=== PATIENT | female | born 1955 | race Caucasian/White ===

== ENCOUNTER 2025-03-24 00:33 | Emergency (ER) | payer OTHER, SELFPAY ==
[2025-03-24] VITALS (11 sets, daily range): BP systolic 105–139; BP diastolic 59–75; PULSE 82–96; RESP 15–20; TEMP 36.2; O2SAT 94–100; BMI 24.8
--- OUTSIDE RECORDS SUMMARY | 2025-03-24 00:35 | XMS_ITS | Encounter Summary ---
Author Organization [facility] Address [address] [place] [address] Care Team Providers Care Pharmacy Customer Care Specialist Name Role Phone Sumeet Reynolds MD Primary Care Provid er Sumeet Reynolds MD Unavailable + [phone] Isabel Baez PA-C Unavailable [phone] Jennifer Sam MD Unavailable Airam Cesar NP Unavailable [phone] Marshall Morrow MD Unavailable [phone] Airam Cesar NP Unavailable [phone] Encounter Details Date Type Department Care Team (Late st Contact Info) Description 07/27/2022 [facility] [address] [place] [address] Josephine Crane, RN Social History Tobacco Use Types Packs/Day Years Used Date Smoking Tobacco: Never Smokeless Tobacco: Never Alcohol Use Standard Drinks/Week Comments Never 0 (1 standard drink = 0.6 oz pur e alcohol) PHQ-2 Answer Date Recorded PHQ-2 Score 0 05/12/2022 Comments No Sex and Gender Information Value Date Recorded Sex Assigned at Female 04/26/2022 8:24 AM CDT Legal Sex Female 3:41 AM HOSPICE/HOME HEALTH AIDE Gender Identity Female 04/26/2022 8:24 AM CDT Sexual Orientation Straight 04/26/2022 8: 24 AM CDT COVID-19 Exposure Response Date Recorded In the last 10 days, have yo u been in contact with someone who was confirmed or suspected to have Coronavirus/COVID-19? No / Unsure 07/26/2022 9:39 AM CDT documented as of this encounter Plan of Treatment Not on file documented as of this encounter Visit Diagnoses Not on filedocumented in this encounter Additional Health Concerns Assessment Noted Time PHQ-9 Depression Total Score: 2 05/12/20 2:10 PM CDT documented as of this encounter Care Teams Pharmacy Customer Care Specialist Relationship Specialty Start Date End Date Sumeet Reynolds MD [address] [place] [address] [place] [address] PCP - General Internal Medicine - Pediatrics 04/29/22 Sumeet Reynolds MD [address] [place] [address] [place] [address] Assigned PCP 04/01/22 09/17/22 Isabel Baez, PA-C [address] [place] [id number] Physician Orchid Superintendent Dermatology 06/10/22 Jennifer Sam MD [address] [place] [address] Gastroenterology 07/08/22 Airma Cesar NP [address] [place] [address] [place] [address] Nurse Practitioner Family Medicine 07/16/22 Marshall Morrow MD [address] [place] [address]/[place] [address] Pulmonary Disease 07/16/22 Airam Cesar NP [address] [facility] [address] [place], [place] [address] Assigned PCP 09/18/22 documented as of this encounter
--- OUTSIDE RECORDS SUMMARY | 2025-03-24 00:35 | XMS_ITS | Encounter Summary ---
Author Organization [facility] Address [address] [place] [address] Care Team Providers Care Car Blocker Name Role Phone Bridget Glez MD Primary Care Provider Encounter Details Date Type Department Care Team (Late st Contact Info) Description 04/27/2018 Emergency Room External to [facility] RIGHT SIDED ABD PAIN Social History Tobacco Use Types Packs/Day Years Used Date Smoking Tobacco: Never Smokeless Tobacco: Never Alcohol Use Standard Drinks/Week Comments No 0 (1 standard drink = 0.6 oz pur e alcohol) Comments No Sex and Gender Information Value Date Recorded Sex Assigned at Not on file Legal Sex Female 4:14 AM CDT Gender Identity Not on file Sexual Orientation Not on file documented as of this encounter Plan of Treatment Not on file documented as of this encounter Visit Diagnoses Not on filedocumented in this encounter Care Teams Car Blocker Relationship Specialty [place] [address] [place] [address] PCP - General Family Practice 02/07/18 documented as of this encounter
--- OUTSIDE RECORDS SUMMARY | 2025-03-24 00:35 | XMS_ITS | Encounter Summary ---
Author Organization [facility] Address [address] [place] [address] Care Team Providers Care Therapist Speech Name Role Phone Bridget Glez MD Primary Care Provider [phone] Encounter Details Date Type Department Care Team (Late st Contact Info) Description 12/01/2018 Consent for Procedure/Treatme nt [facility] Department INFORMED CONSENT RECORD Social History Tobacco Use Types Packs/Day Years [...] on filedocumented in this encounter Care Teams Therapist Speech Relationship Specialty [place] [address] [place] [address] PCP - General Family Practice 02/07/18 documented as of this encounter
--- OUTSIDE RECORDS SUMMARY | 2025-03-24 00:35 | XMS_ITS | Clinical Summary ---
Author Organization [facility] Address [address] [place] [address] Care Team Providers Care Broomcorn Sorter Name Role Phone Bridget Glez MD Primary Care Provider [phone] Source Comments You are receiving this document as you are listed as the primary care provider,follow-up provider, or the patient has been referred to you for consultation.This is in compliance with the Medicare and[facility] EHR Incentive Program,which states Providers who transition their patient to another setting of careor provider of care or refers their patient to another provider of care shouldprovide summary care record for each transition of care or referral. [facility] Allergies Active Allergy Reactions Criticality Noted Date Comments Baclofen Anaphylaxis,Anxiety, Di zziness,Edema,generali zed,Myalgias,Palpitati ons,Rash,Swelling High 05/11/2021 Benzodiazepines Other, see comments Low 01/23/2018 Withdrawals for months. Worsening anxiety. Withdrawals for months. Worsening anxiety. Codeine Cranberry Anaphylaxis,Anxiety, Ot her, see comments,Dizziness,Hiv es,Itching,Palpitation s,Rash,Respiratory Distress,Swelling High 04/28/2012 Gabapentin Confusion,Dizziness, He adache,Muscle Aches/Weakness 03/14/2023 Hydroxyzine Tachycardia 04/21/2018 Latex Rash Low 02/27/2021 Morphine And Codeine Vomiting 09/02/2009 Other Rash 06/20/2020 Most berries. Medications Multiple Vitamin (MULTI-VITAMIN DAILY OR) 2 Active cholecalciferol (VITAMIN D3) 25 MCG (1000 UT) tablet Take 1,000 Units by mouth. Active lansoprazole (PREVACID) 30 MG capsule Take 1 Capsule (30 mg) by mouth daily. 90 Capsule 3 3 Active Additional Information Patient not taking.Reported on 03/14/2023 erythromycin (ERYGEL) 2 % gelIndications:A cne, unspecified acne type Apply topically daily as needed. 30 g 3 Active Additional Information Patient not taking.Reported on 03/14/2023 ibuprofen (MOTRIN) 200 MG tablet Take 1 Tablet (200 mg) by mouth three times a day. Active Active Problems Problem Noted Date Diagnosed Date Food allergy 06/20/2020 Overview (06/20/2020): berries Abdominal pain, left upper quadrant 11/07/2018 Nausea 11/07/2018 Anxiety 02/09/2018 Glaucoma suspect of both eyes 01/28/2016 Cortical age-related cataract of both eyes 01/27 Meibomian gland dysfunction (MGD), bilateral, both upper and lower lids 01/28/2016 Presbyopia 01/28/2016 Palpitations 09/28/2010 Overview (01/31/2018): Sinus tachycardia with PVCs Became persistent 01/23/2018. Controlled with propranolol Hyperlipidemia 09/28/2010 Gastroesophageal reflux disease 09/28/2010 Overview (06/01/2017): Reflux Pulmonary nodule 08/27/2010 Mitral valve disorder 08/27/2010 Overview (07/10/2015): Epic Acne 09/02/2009 Depression 09/02/2009 Nasal polyps 09/02/2009 Esophageal reflux 03/16/2003 Overview (06/01/2017): Gastroesophageal Reflux Disease Sjogren syndrome, unspecified Disorder of adrenal gland, unspecified Resolved Problems Problem Noted Date Diagnosed Date Resolved Date Irritable bowel syndrome 03/16/2003 Immunizations Immunization Administration Dates Next Due DT Ped 05/08/1991 Flu Vac (3+ yrs) 08/08/2012,08/10/2011 Influenza IIV4 (Quadrivalent) 0.5mL (47821) 07/12,08/08/2017,07/15/2016 Influenza Vaccine (3+years) ([facility]) 010 Influenza, Unspecified Formulation 08/06/1993 Moderna Monovalent 12+ 01/02/2021,12/05/2020 PCV13 (Prevnar) 07/15/2016 Tdap 07/11/2013 Zoster (Zostavax) 02/13/2014 Family History Medical History Relation Name Comments Cancer, Colon Father Cancer, Melanoma Father Depression Father Hearing Loss Father Heart disorder Father Hyperlipidemia Father cancer,colon Father Anesthesia Reaction Mother Cerebrovascular Disease Mother of cerebral aneurysm Depression Mother Thyroid Disorder Mother and 2 siste rs Asthma Maternal Grandmother Cancer, Other Maternal Grandmother cervic al CA Cancer, Other Paternal Grandfather Hearing Loss Paternal Grandfather Hyperlipidemia Paternal Grandfather Cancer, Other Paternal Grandmother Depression Sister 1 2 sisters Other Sister 2 AAA Asthma Sister 3 Cancer, Breast Sister 4 reoccured. dx @73. Heart disorder Sister 4 Lymphoma Sister 4 Cancer, Ovary Negative Family History Cataract Negative Family History Glaucoma Negative Family History Macular Degeneration Negative Family History Relation Name Status Comments Father Mother ANEURYSM/ CEREB RAL Maternal Grandmother Paternal Grandfather Paternal Grandmother Sister 1 Sister 2 Sister 3 Sister 4 Social History Tobacco Use Types Packs/Day Years Used Date Smoking Tobacco: Never Smokeless Tobacco: Never Alcohol Use Standard Drinks/Week Comments No 0 (1 standard drink = 0.6 oz pur e alcohol) PHQ-2 Answer Date Recorded PHQ-2 Score 0 02/20/2024 Comments No Sex and Gender Information Value Date Recorded Sex Assigned at Not on file Legal Sex Female 4:14 AM CDT Gender Identity Not on file Sexual Orientation Not on file Last Filed Vital Signs Vital Sign Reading Time Taken Comments Blood Pressure 111/61 04/25/2024 2:45 PM CDT Pulse 75 04/25/2024 2:45 PM CDT Temperature 36.4 C (97.6 F) 08/18/2022 9:39 AM DROP BOARD MAN Respiratory Rate 18 11/17/2022 3:15 PM DROP BOARD MAN Oxygen Saturation 98% 11/17/2022 3:15 PM DROP BOARD MAN Inhaled Oxygen Concentration - - Weight 63.5 kg (140 lb) 04/25/2024 2:45 PM CDT Height 160 cm (5' 3) 08/18/2022 9:39 AM DROP BOARD MAN Body Mass Index 24.8 08/18/2022 9:39 AM DROP BOARD MAN Plan of Treatment Health Maintenance Due Date Last Done Comments Adult Preventive Visit 08/08/2013 08/08/2012, 2009 Zoster/Shingles Vaccine (2 of 3) 04/10/2014 02/13/2014 Pneumococcal Vaccine 50+ Yrs (2 of 2 - PCV) 07/15/2017 07/15/2016 DTaP/Tdap/Td Vaccine (3 - Tdap) 07/11/2023 07/11/2013, 05/08/1991 Colonoscopy 12/01/2023 12/01/2018, 12/2013, 11/12/2013 Mammogram 03/10/2024 03/10/2023, 12/09, 11/08/2017, Additional history exists COVID-19 Vaccine ( season) 2024 09/16/2021, 01/02/2021, 12/05/2020 Influenza Vaccine (Season Ended) 2025 07/17/2020, 07/16/2020, 07/30/2019, Additional history exists Cholesterol 02/05/2026 02/05/2021, 07/10, 07/08/2017, Additional history exists RSV Vaccine (1 - 1-dose 75+ series) 12/31/2030 Hep C Screening (Preventive Services) Completed 11/28/2015 Dexa Completed 04/22/2021, 04/22/2021 HepA Vaccine Aged Out No longer eligi ble based on patient's age to complete this topic HepB Vaccine Aged Out No longer eligi ble based on patient's age to complete this topic Hib Vaccine Aged Out No longer eligi ble based on patient's age to complete this topic IPV (Polio) Vaccine Aged Out No longe r eligible based on patient's age to complete this topic MCV4 Vaccine Aged Out No longer eligi ble based on patient's age to complete this topic Meningococcal B Vaccine Aged Out No l onger eligible based on patient's age to complete this topic Procedures Procedure Name Priority Date/Time Associated Diagnosis Comments MM MAMMOGRAM SCREENING BILAT W 3D BUD W CAD Routine 03/10/2023 8:37 AM CDT LIPID PANEL & DIRECT LDL (IF NEEDED) Routine 02/05/2021 7:08 AM CDT Screening cholesterol level COLONOSCOPY Routine 12/01/2018 11:52 AM DROP BOARD MAN Screen for colon cancer HEPATITIS C ANTIBODY, WITH REFLEX (ANTI-HCV) Routine 11/28/2015 10:57 AM DROP BOARD MAN Inflammatory arthritis from Last 3 Months or Most Recently Relevant to Health Maintenance Results * MM Mammogram Screening Bilat W 3D Bud W CAD (03/10/2023 8:37 AM CDT) Anatomical Region Laterality Modality Breast Bilateral Mammography Impressions 03/11/2023 7:50 AM CDT : ACR BI-RADS Category 2: Benign RECOMMENDATION: Follow Up Imaging in 12 months - Bilateral The results and recommendations of this examination will be communicated to the patient. Narrative 03/11/2023 7:50 AM CDT MM MAMMOGRAM SCREENING BILAT W 3D BUD W CAD performed on 03/10/23 Compared to: 01/02/2019 MM Mammogram Screening Bilat W 3D Bud W CAD, 11/08/2017 MM Mammogram Screening Bilat W Bud W CAD, and 12/27/2016 MEDICAL IMAGING OUTSIDE FILM FINDINGS: Bilateral screening mammogram was performed with the assistance of Computer-Aided Detection and breast tomosynthesis. The breasts are extremely dense, which lowers the sensitivity of mammography. There are post-surgical changes on the right. There is no radiographic evidence of malignancy. us Bridget Glez MD RAD NOMAN Final Result * (ABNORMAL) Lipid Panel and Direct LDL(If Needed) (02/05/2021 7:08 AM CDT) Cholesterol 235(H) 0 - 199 mg/dL 02/05/2021 11:46 AM CDT [facility] Triglyceride 80 <=149 mg/dL 02/05/2021 11:46 AM CDT [facility] HDL Cholesterol 77 >=40 mg/dL 02/05/2021 11:46 AM CDT [facility] LDL, Calculated 142(H) <130 mg/dL 02/05/2021 11:46 AM CDT [facility] Non HDL Chol, Calculated 158 mg/dL 02/05/2021 11:46 AM CDT [facility] Cholesterol/HDL Ratio 3.1 02/05/2021 11:46 AM CDT [facility] Hours Fasting 12 02/05/2021 11:46 AM CDT [facility] Blood Venipuncture / Unknown 02/05/2021 7:08 AM CDT 02/05/2021 7:57 AM CDT us Bridget Glez MD LAB_1 Final Result [facility] [address] [address], [facility] [phone] [facility] [address] [place] [address], [facility] [phone] * COLONOSCOPY [[id number]] (12/01/2018 11:52 AM DROP BOARD MAN) 12/01/2018 11:5 2 AM DROP BOARD MAN Narrative [facility] - 12/01/2018 12:23 PM DROP BOARD MAN Instrument Name: 181 Indications: Family history of colon cancer in a first-degree relative Providers: Francisco Fatima MD, Kierra James LPN, Peg Rivera, RN Referring MD: Medicines: Midazolam 3 mg IV, Fentanyl 100 micrograms IV Complications: No immediate complications. Procedure: Pre-Anesthesia Assessment: - The risks and benefits of the procedure and the sedation options and risks were discussed with the patient. All questions were answered and informed consent was obtained. - Airway Examination: normal oropharyngeal airway and neck mobility. - ASA Grade Assessment: II - A patient with mild systemic disease. After I obtained informed consent, the scope was passed under direct vision. Prior to sedation, patient identity and procedure was reverified. Throughout the procedure, the patient's blood pressure, pulse, and oxygen saturations were monitored continuously. The PCF-H190L was introduced through the anus and advanced to the cecum, identified by appendiceal orifice and ileocecal valve. The colonoscopy was performed with moderate difficulty due to restricted mobility of the colon. Successful completion of the procedure was aided by increasing the dose of sedation medication. The quality of the bowel preparation was good. The ileocecal valve and the appendiceal orifice were photographed. Findings: Non-bleeding internal hemorrhoids were found during retroflexion. The hemorrhoids were medium-sized. The exam was otherwise without abnormality. Moderate Sedation: Moderate (conscious) sedation was administered by the endoscopy nurse and supervised by the endoscopist. The following parameters were monitored: oxygen saturation, heart rate, blood pressure, respiratory rate, EKG, adequacy of pulmonary ventilation, and response to care. Total physician intraservice time was 15 minutes. Impression: - Non-bleeding internal hemorrhoids. - The examination was otherwise normal. - No specimens collected. Recommendation: - Repeat colonoscopy in 5 years for screening purposes. Procedure Code(s): --- Professional --- 35348, Colonoscopy, flexible; diagnostic, including collection of specimen(s) by brushing or washing, when performed (separate procedure) G0500, Moderate sedation services provided by the same physician or other qualified health medication care manager performing a gastrointestinal endoscopic service that sedation supports, requiring the presence of an independent trained observer to assist in the monitoring of the patient's level of consciousness and physiological status; initial 15 minutes of intra-service time; patient age 5 years or older (additional time may be reported with [address], as appropriate) Diagnosis Code(s): --- Professional --- K64.8, Other hemorrhoids Z80.0, Family history of malignant neoplasm of digestive organs CPT copyright 2017 [employer]. All rights reserved. The codes documented in this report are preliminary and upon corporate staff accountant review may be revised to meet current compliance requirements. Attending Participation: Francisco Fatima MD 12/01/2018 12:23:08 PM This report has been signed electronically. Number of Addenda: 0 Note Initiated On: 12/01/2018 11:52 AM Procedure Note Francisco Fatima MD - 12/01/2018 Instrument Name: 181 Indications: Family history of colon cancer in a first-degree relative Providers: Francisco Fatima MD, Kierra James LPN, Peg Rivera RN Referring MD: Medicines: Midazolam 3 mg IV, Fentanyl 100 micrograms IV Complications: No immediate complications. Procedure: Pre-Anesthesia Assessment: - The risks and benefits of the procedure and the sedation options and risks were discussed with the patient. All questions were answered and informed consent was obtained. - Airway Examination: normal oropharyngeal airway and neck mobility. - ASA Grade Assessment: II - A patient with mild systemic disease. After I obtained informed consent, the scope was passed under direct vision. Prior to sedation, patient identity and procedure was reverified. Throughout the procedure, the patient's blood pressure, pulse, and oxygen saturations were monitored continuously. The PCF-H190L was introduced through the anus and advanced to the cecum, identified by appendiceal orifice and ileocecal valve. The colonoscopy was performed with moderate difficulty due to restricted mobility of the colon. Successful completion of the procedure was aided by increasing the dose of sedation medication. The quality of the bowel preparation was good. The ileocecal valve and the appendiceal orifice were photographed. Findings: Non-bleeding internal hemorrhoids were found during retroflexion. The hemorrhoids were medium-sized. The exam was otherwise without abnormality. Moderate Sedation: Moderate (conscious) sedation was administered by the endoscopy nurse and supervised by the endoscopist. The following parameters were monitored: oxygen saturation, heart rate, blood pressure, respiratory rate, EKG, adequacy of pulmonary ventilation, and response to care. Total physician intraservice time was 15 minutes. Impression: - Non-bleeding internal hemorrhoids. - The examination was otherwise normal. - No specimens collected. Recommendation: - Repeat colonoscopy in 5 years for screening purposes. Procedure Code(s): --- Professional --- 07283, Colonoscopy, flexible; diagnostic, including collection of specimen(s) by brushing or washing, when performed (separate procedure) G0500, Moderate sedation services provided by the same physician or other qualified health medication care manager performing a gastrointestinal endoscopic service that sedation supports, requiring the presence of an independent trained observer to assist in the monitoring of the patient's level of consciousness and physiological status; initial 15 minutes of intra-service time; patient age 5 years or older (additional time may be reported with [address], as appropriate) Diagnosis Code(s): --- Professional --- K64.8, Other hemorrhoids Z80.0, Family history of malignant neoplasm of digestive organs CPT copyright 2017 [employer]. All rights reserved. The codes documented in this report are preliminary and upon corporate staff accountant review may be revised to meet current compliance requirements. Attending Participation: Francisco Fatima MD 12/01/2018 12:23:08 PM This report has been signed electronically. Number of Addenda: 0 Note Initiated On: 12/01/2018 11:52 AM us Francisco Fatima MD DIGESTIVE CARE Final Result [facility] [place], [place] * HEPATITIS C ANTIBODY, WITH REFLEX (11/28/2015 10:57 AM DROP BOARD MAN) Anti-HCV Negative (Non Reactive) [facility] Comment:Does Not Rule Out In fection with HCV 11/28/2015 10:5 7 AM DROP BOARD MAN 11/28/2015 11:05 AM DROP BOARD MAN Narrative [facility] - 11/29/2015 10:45 AM DROP BOARD MAN Performed at [facility], [address] [place] [address] us Conchis Barbosa MD LAB_1 Final Re sult Performing Organization Address City/[facility]/ZIP Co de Phone Number [facility] [phone] from Last 3 Months or Most Recently Relevant to Health Maintenance Insurance SELF INSURED MEDICARE PART A [place] SELF INSURED [employer] SELF INSURED DENTAL Care Teams Broomcorn Sorter Relationship Specialty [place] [address] [place] [address] PCP - General Family Practice 02/07/18
--- OUTSIDE RECORDS SUMMARY | 2025-03-24 00:36 | XMS_ITS | Encounter Summary ---
Author Organization [facility] Address [address] [place] [address] Care Team Providers Care Repair Coil Winder Name Role Phone Sumeet Reynolds MD Primary Care Provid er Sumeet Reynolds MD Unavailable + [phone] Isabel Baez PA-C Unavailable [phone] Jennifer Sam MD Unavailable Airam Cesar NP Unavailable [phone] Marshall Morrow MD Unavailable [phone] Airam Cesar NP Unavailable [phone] Encounter Details Date Type Department Care Team (Late st Contact Info) Description 06/24/2022 MyC Medical Advice [facility] [address] [place] [address] Sumeet Reynolds MD [address] [place] [address] [place] [address] Low ferritin (Primary Dx) Social History Tobacco Use Types Packs/Day Years Used Date Smoking Tobacco: Never Smokeless Tobacco: Never Alcohol Use Standard Drinks/Week Comments Never 0 (1 standard drink = 0.6 oz pur e alcohol) PHQ-2 Answer Date Recorded PHQ-2 Score 0 05/12/2022 Comments No Sex and Gender Information Value Date Recorded Sex Assigned at Female 04/26/2022 8:24 AM CDT Legal Sex Female 3:41 AM ASSOCIATE DEAN Gender Identity Female 04/26/2022 8:24 AM CDT Sexual Orientation Straight 04/26/2022 8: 24 AM CDT COVID-19 Exposure Response Date Recorded In the last 10 days, have santy u been in contact with someone who was confirmed or suspected to have Coronavirus/COVID-19? No / Unsure 06/21/2022 2:29 PM CDT documented as of this encounter Miscellaneous Notes * Telephone Encounter - Sumeet Reynolds MD - 06/25/2022 10:21 AM CDT Since she's weaning off the sertraline I'd recommend doing the labs at least 4-6 weeks after stopping - however it can take a long time for iron stores to rebuil Teto Reynolds MD Internal Medicine-Pediatrics d. * Telephone Encounter - Josephine Crane RN - 06/24/2022 3:32 PM CDT Patient planning to wean off sertraline to see if her low iron rebounds. Routing to PCP to update and advise on next lab date, 3mo? documented in this encounter Plan of Treatment Not on file documented as of this encounter Visit Diagnoses Diagnosis Low ferritin- Primary Other nonspecific findings on examination of blood documented in this encounter Additional Health Concerns Assessment Noted Time PHQ-9 Depression Total Score: 2 05/12/20 22 2:10 PM CDT documented as of this encounter Care Teams Repair Coil Winder Relationship Specialty Start Date End Date Sumeet Reynolds MD [address] [place] [address] [place] [address] PCP - General Internal Medicine - Pediatrics 04/29/22 Sumeet Reynolds MD [address] [place] [address] [place] [address] Assigned PCP 04/01/22 09/17/22 Isabel Baez, PAJustaC [address] [place] [address] Physician Steamtable Worker Dermatology 06/10/22 Jennifer Sam MD [address] [place] [address] Gastroenterology 07/08/22 Airam Cesar NP [address] [place] [address] [place] [address] Nurse Practitioner Family Medicine 07/16/22 Marshall Morrow MD [address] [place] [address]/[place] [address] Pulmonary Disease 07/16/22 Airam Cesar NP [address] [place] [address] [place] [address] Assigned PCP 09/18/22 documented as of this encounter
--- OUTSIDE RECORDS SUMMARY | 2025-03-24 00:36 | XMS_ITS | Encounter Summary ---
Author Organization [facility] Address [address], [place] [address] Care Team Providers Care Prepared Foods Team Leader Name Role Phone Bridget Glez MD Primary Care Provider [phone] Encounter Details Date Type Department Care Team (Late st Contact Info) Description 05/27/2015 Scanned History External to External, Provider No address [address] CL-VISIT NOTES Social History Tobacco Use Types Packs/Day Years [...] on filedocumented in this encounter Care Teams Prepared Foods Team Leader Relationship Specialty [place] [address] [place] [address] PCP - General Family Practice 02/07/18 documented as of this encounter
--- OUTSIDE RECORDS SUMMARY | 2025-03-24 00:36 | XMS_ITS | Clinical Summary ---
Author Organization [facility] Address [address] [place] [address] Care Team Providers Care Clinical Dental Technician Name Role Phone Sumeet Reynolds MD Primary Care Provid er Isabel Baez PA-C Unavailable [phone] Jennifer Sam MD Unavailable Airam Cesar NP Unavailable [phone] Marshall Morrow MD Unavailable [phone] Airam Cesar NP Unavailable Allergies Active Allergy Reactions Criticality Noted Date Comments Baclofen Anxiety,Dizziness,An aphyl axis,Muscle Pain (Myalgia),Palpitations,Ra sh,Swelling High 05/11/2021 Benzodiazepines Other (See Comments) Low 01/23/2018 Withdrawals for months. Worsening anxiety. Cranberry Anaphylaxis,Anxiety, Diffi culty breathing,Dizziness,Hives ,Itching,Palpitations,Wojciech h,Shortness Of Breath,Swelling High 04/28/2012 Hydroxyzine Palpitations Low 04/21/2018 Morphine 09/02/2009 Other reaction(s): Vomiting Medications Multiple Vitamin (MULTIVITAMIN ADULT PO) Active ibuprofen (ADVIL/MOTRIN) 200 MG tablet Take 200 mg by mouth 4 times daily Activ e vitamin C (VITAMIN C) 250 MG tablet Take 250 mg by mouth daily Active cholecalciferol 25 MCG (1000 UT) TABS Take 1,000 Units by mouth daily Active EPINEPHrine (EPIPEN JR) 0.15 MG/0.3ML injection 2-pack INJECT 0.3 ML (0.15 MG TOTAL) INTRAMUSCULARLY NEEDED FOR ANAPHYLAXIS. INJECT INTO THE THIGH. 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 Alternatively, may consider other statins such as pravastatin, atorvastatin or rosuvastatin. 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 This is a TI-RADS 3 nodule. Follow-up recommended in one year. Mild mitral regurgitation 04/29/2022 Mild aortic regurgitation 04/29/2022 Cervical disc disorder 05/16/2021 Osteopenia 04/22/2021 Overview (04/29/2022): Osteopenia 04/22/21. Initial DXA BMD Recheck at -1.6 to -2.0 5 years Thoracic disc disorder 04/10/2021 Hyperlipidemia 09/28/2010 Overview (04/29/2022): If cholesterol lowering medication such as simvastatin is considered in the future, would recommend no more than 20 mg maximum per day due to risk of myopathy. Alternatively, may consider other statins such as pravastatin, atorvastatin or rosuvastatin. 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/29/2022 04/29/2022 Immunizations Immunization Administration Dates Next Due DT (PEDS <7y) 05/08/1991 Influenza Vaccine 18-64 (Flublok) 07/17/2020 Pneumo Conj 13-V (2010&after) 07/15/2016, 016 TDAP (Adacel,Boostrix) 07/11/2013 Zoster vaccine, live 02/13/2014 Social History Tobacco Use Types Packs/Day Years Used Date Smoking Tobacco: Never Smokeless Tobacco: Never Tobacco Cessation:Counseling Given: Not Answered Alcohol Use Standard Drinks/Week Comments Never 0 (1 standard drink = 0.6 oz pur e alcohol) PHQ-2 Answer Date Recorded PHQ-2 Score 0 05/12/2022 Adolescent Education Answer Date Record ed Getting School Help Needed Not on file 07/01 Comments No Sex and Gender Information Value Date Recorded Sex Assigned at Female 04/26/2022 8:24 AM CDT Legal Sex Female 3:41 AM 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 Gender Identity Female 04/26/2022 8:24 AM CDT Sexual Orientation Straight 04/26/2022 8: 24 AM CDT Last Filed Vital Signs Vital Sign Reading Time Taken Comments Blood Pressure 102/67 07/26/2022 9:52 AM CDT Pulse 82 07/26/2022 9:52 AM CDT Temperature 36.9 C (98.5 F) 07/26/2022 9:52 AM CDT Respiratory Rate 18 07/26/2022 9:52 AM CDT Oxygen Saturation 99% 07/26/2022 9:52 AM CDT Inhaled Oxygen Concentration - - Weight 58 kg (127 lb 14.4 oz) 07/26/2022 9:52 AM CDT Height 160 cm (5' 3) 07/26/2022 9:52 AM CDT Body Mass Index 22.66 07/26/2022 9:52 AM CDT Plan of Treatment Health Maintenance Due Date Last Done Comments ADVANCE CARE PLANNING 1956 CT COLONOGRAPHY 1955 FIT 1955 FLEX SIG 1955 sDNA (Cologuard) 1955 ZOSTER VACCINE (2 of 3) 04/10/2014 02/13/2014 RSV VACCINE (1 - Risk 60-74 years 1-dose series) 2016 PNEUMOCOCCAL VACCINE 50+ YEARS (2 of 2 - PPSV23) 07/15/2017 07/15/2016, 07/15/2016 MEDICARE ANNUAL WELLNESS VISIT 12/31/2020 08/27/2010 MAMMO SCREENING 01/02/2021 01/02/2019 LIPID 01/12/2023 01/12/2022 ANNUAL REVIEW OF HM ORDERS 05/12/2023 05/12/2022 DTAP/TDAP/TD VACCINE (2 - Td or Tdap) 07/11/2023 07/11/2013 FALL RISK ASSESSMENT 07/26/2023 07/26/2022, 07/15/20 COVID-19 VACCINE ( season) 2024 09/16/2021, 01/02/2021, 12/05/2020 PHQ-2 (once per calendar year) 2024 05/12/2022, 05/12/2022, 05/12/2022, Additional history exists DIABETES SCREENING 05/12/2025 05/12/2022, 11/05/2021 INFLUENZA VACCINE (Season Ended) 2025 07/17/2020, 07/30/2019, 08/09/2018, Additional history exists COLONOSCOPY 12/01/2028 12/01/2018 COLORECTAL CANCER SCREENING 12/01/2028 DEXA 04/22/2036 04/22/2021, 04/22/2021 HEPATITIS C SCREENING Completed 05/12/2022 HPV VACCINE Aged Out No longer eligi ble based on patient's age to complete this topic MENINGITIS VACCINE Aged Out No longer eligible based on patient's age to complete this topic Procedures Procedure Name Priority Date/Time Associated Diagnosis Comments COMPREHENSIVE METABOLIC PANEL Routine 05/12/2022 2:44 PM CDT Hypotension, unspecified hypotension type HEPATITIS C SCREEN REFLEX TO HCV RNA QUANT AND GENOTYPE Routine 05/12/2022 2:44 PM CDT Need for hepatitis C screening test LIPID PANEL (EXTERNAL RESULT) Routine 01/12/2022 7:32 AM CDT DEXA - HIM SCAN Routine 04/22/2021 MAMMOGRAM - HIM SCAN Routine 01/02/2019 COLONOSCOPY - HIM SCAN Routine 12/01/2018 from Last 3 Months or Most Recently Relevant to Health Maintenance Results * Hepatitis C Screen Reflex to HCV RNA Quant and Genotype (05/12/2022 2:44 PM CDT) Hepatitis C Antibody Nonreactive Nonreactive 05/13/2022 12:34 PM CDT SPECIALTY CORE/PROT/EN DO Blood VENOUS BLOOD / Unknown Venipuncture / Unknown 05/12/2022 2:44 PM CDT 05/12/2022 3:23 PM CDT Narrative SPECIALTY CORE/PROT/ENDO - 05/13/2022 12:34 PM CDT Assay performance characteristics have not been established for newborns, infants, and children. us Airam Cesar NP LAB - BLOOD ORDERABLES Final Re sult [facility] SPECIALTY CORE/PROT/ENDO Specialty Core/Prot/Endo [address] [facility], [address], [place] [address], [facility] [phone] * Comprehensive metabolic panel (BMP + Alb, Alk Phos, ALT, AST, Total. Bili, TP) (05/12/2022 2:44 PM CDT) Sodium 138 133 - 144 mmol/L 05/12/2022 7:26 PM CDT [facility] Potassium 3.8 3.4 - 5.3 mmol/L 05/12/2022 7:26 PM CDT [facility] Chloride 104 94 - 109 mmol/L 05/12/2022 7:26 PM CDT [facility] Carbon Dioxide (CO2) 28 20 - 32 mmol/L 05/12/2022 7:26 PM CDT [facility] Anion Gap 6 3 - 14 mmol/L 05/12/2022 7:26 PM CDT [facility] Urea Nitrogen 20 7 - 30 mg/dL 05/12/2022 7:26 PM CDT [facility] Creatinine 0.70 0.52 - 1.04 mg/dL 05/12/2022 7:26 PM CDT [facility] Calcium 9.3 8.5 - 10.1 mg/dL 05/12/2022 7:26 PM CDT [facility] Glucose 96 70 - 99 mg/dL 05/12/2022 7:26 PM CDT [facility] Alkaline Phosphatase 76 40 - 150 U/L 05/12/2022 7:26 PM CDT [facility] AST 29 0 - 45 U/L 05/12/2022 7:26 PM CDT [facility] ALT 43 0 - 50 U/L 05/12/2022 7:26 PM CDT [facility] Protein Total 7.5 6.8 - 8.8 g/dL 05/12/2022 7:26 PM CDT [facility] Albumin 3.8 3.4 - 5.0 g/dL 05/12/2022 7:26 PM CDT [facility] Bilirubin Total 0.2 0.2 - 1.3 mg/dL 05/12/2022 7:26 PM CDT [facility] GFR Estimate >90 >60 mL/min/1.7 3m2 05/12/2022 7:26 PM CDT [facility] Comment:Effective September 102020 eGFRcr in adults is calculated using the 2020 CKD-EPI creatinine equation which includes age and gender (Kameron et al., NEJM, DOI: 10.1056/EFAIxa5045863) Blood VENOUS BLOOD / Unknown Venipuncture / Unknown 05/12/2022 2:44 PM CDT 05/12/2022 3:23 PM CDT Airam Cesar NP LAB - BLOOD ORDERABLES Final Re sult [facility] [address] Lab (no room number, 1st floor of clinic) [place] [address], [facility] [phone] * (ABNORMAL) Lipid Panel (External Result) (01/12/2022 7:32 AM CDT) Cholesterol (External) 229(H) <200 mg/dL [facility] Triglycerides (External) 74 <150 mg/dL [facility] HDL Cholesterol (External) 84 >=50 mg/dL [facility] LDL Cholesterol (External) 130(H) <100 mg/dL [facility] Non HDL Cholesterol (External) 145(H) <130 mg/dL [facility] Blood 01/12/2022 7:32 AM CDT Narrative [facility] - 01/12/2022 7:32 AM CDT Care Everywhere, [facility] us Provider Outside LAB - HIM EXTERNAL RESULT Final Result Performing Organization Address City/State/[facility] Co de Phone Number [facility] [address] [facility] [address] [place] [address] * DEXA - HIM Scan (04/22/2021) Anatomical Region Laterality Modality Other Narrative 04/22/2021 Care Everywhere, [facility] us Provider Outside IMG DEXA ORDERABLES Final Resul t * Mammogram - HIM Scan (01/02/2019) Anatomical Region Laterality Modality Other Narrative 01/02/2019 Care Everywhere, [facility] us Provider Outside IMG MAMMOGRAPHY ORDERABLES Carly l Result * Colonoscopy - HIM Scan (12/01/2018) Narrative Yuliana Szymanski - 12/01/2018 Care Everywhere, [facility] us Provider Outside PROCEDURES Final Result from Last 3 Months or Most Recently Relevant to Health Maintenance Insurance [employer] Care Teams Clinical Dental Technician Relationship Specialty Start Date End Date Sumeet Reynolds MD [address] [place] [address] [place] [address] PCP - General Internal Medicine - Pediatrics 04/29/22 Isabel Baez, PA-C [address] [place] [address] Physician Dynamics Ax Technical Architect Dermatology 06/10/22 Jennifer Sam MD [address] [place] [address] Gastroenterology 07/08/22 Airam Cesar NP [address] [place] [address] [place] [address] Nurse Practitioner Family Medicine 07/16/22 Marshall Morrow MD [address] [place] [address]/[place] [address] Pulmonary Disease 07/16/22 Airam Cesar, MAINTENANCE DEPARTMENT MANAGER [address] [place] [address] [place] [address] Assigned PCP 09/18/22
--- OUTSIDE RECORDS SUMMARY | 2025-03-24 00:36 | XMS_ITS | Encounter Summary ---
Author Organization [facility] Address [address] [place] [address] Care Team Providers Care Produce Buyer Name Role Phone Sumeet Reynolds MD Primary Care Provid er Sumeet Reynolds MD Unavailable [phone] Isabel Baez PA-C Unavailable [phone] Jennifer Sam MD Unavailable Airam Cesar NP Unavailable [phone] Marshall Morrow MD Unavailable [phone] Airam Cesar NP Unavailable [phone] Reason for Referral * Consultation (Routine: Next available opening) - Closed Specialty Diagnoses / Procedures Referred By Contac t Referred To Contact Neurology Diagnoses Dizziness Sumeet Reynolds MD [address] [place] [address] Phone: tel: fax: [address] [address] Phone: tel: Referral ID Status Reason Start Date Expiration Date Visits Re quested Visits Authorized [id number] Closed 06/21/2022 06/21/2023 1 1 Question Answer Reason for Referral: General Neurology Scheduling Instructions: [facility] will call you to coordinate your care as prescribed by your provider. If you don't hear from a hostess party sales representative within 2 business days, please call . Comments Please be aware that coverage of these services is subject to the terms and limitations of your health insurance plan. Call member services at your health plan with any benefit or coverage questions. [facility] will call you to coordinate your care as prescribed by your provider. If you don't hear from a hostess party sales representative within 2 business days, please call . Encounter Details Date Type Department Care Team (Late st Contact Info) Description 06/20/2022 MyC Medical Advice [facility] [address] [place] [address] Sumeet Reynolds MD [address] [facility] [place] [address] Dizziness (Primary Dx) Social History Tobacco Use Types Packs/Day Years Used Date Smoking Tobacco: Never Smokeless Tobacco: Never Alcohol Use Standard Drinks/Week Comments Never 0 (1 standard drink = 0.6 oz pur e alcohol) PHQ-2 Answer Date Recorded PHQ-2 Score 0 05/12/2022 Comments No Sex and Gender Information Value Date Recorded Sex Assigned at Female 04/26/2022 8:24 AM CDT Legal 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 No / Unsure 06/21/2022 2:29 PM CDT documented as of this encounter Miscellaneous Notes * Telephone Encounter - Sumeet Reynolds MD - 06/21/2022 12:20 PM CDT I don't think dizziness related to anemia/low hgb - last 13.3 two months ago. Since the dizziness is more persistent and she's only noted intermittent lower diastolic's I would start with Neuro and we can hold on Cardiology. She is going to see GI and that is the next step in the lower ferritin w/up. Teto Reynolds MD Internal Medicine-Pediatrics * Telephone Encounter - Josephine Crane RN - 06/21/2022 8:10 AM CDT Pt reply to result note from [facility]: Micah Louise, ?? Thanks for coming in. Your EKG looked good and your orthostatic blood pressures (making sure your brain was getting enough blood pressure when you changed position) were normal. Your cortisol was normal (checking for adrenal insufficiency). ?? The next steps would be looking into Cardiology and Neurology. For Cardiology the question would bedoes your slightly lower BP contribute to your dizziness. I could either have you meet with them ordo an econsult (depending on plan and deductible max fee is $114; they get back to me pretty quickly) to see if they would recommend any medications to help raise your BP to see if that helps. Neurology-paz I would recommend meeting with them in person and I'm happy to put that in now if you are okay with it. ?? I'm glad we're moving forward with talking to GI, etc but it may be a while before we figure out what/if the iron question and I don't want to forget about the dizziness. ?? Let me know what you think and we'll get things going, Teto Reynolds MD Internal Medicine-Pediatrics - Pending Neurology Referral - please confirm Dx? - any action to take with low iron at this time? documented in this encounter Plan of Treatment Scheduled Referrals Name Type Priority Associated Diagnoses Orde r Schedule Adult Neurology Fishing Accessories Maker Referral Referral Routine: Next available opening Dizziness Expected: 06/21/2022 (Approximate), Expires: 06/21/2023 documented as of this encounter Visit Diagnoses Diagnosis Dizziness- Primary Dizziness and giddiness documented in this encounter Additional Health Concerns Assessment Noted Time PHQ-9 Depression Total Score: 2 05/12/20 22 2:10 PM CDT documented as of this encounter Care Teams Produce Buyer Relationship Specialty Start Date End Date Sumeet Reynolds MD [address] [place] [address] [place] [address] PCP - General Internal Medicine - Pediatrics 04/29/22 Sumeet Reynolds MD [address] [place] [address] [place] [address] Assigned PCP 04/01/22 09/17/22 Isabel Baez, PA-C [address] [place] [address] Physician Stunt Driver Dermatology 06/10/22 Jennifer Sam MD [address] [place] [address] Gastroenterology 07/08/22 Airam Cesar NP [address] [place] [address] [place] [address] Nurse Practitioner Family Medicine 07/16/22 Marshall Morrow MD [address] [place] [address]/[place] [address] Pulmonary Disease 07/16/22 Airam Cesar, TOOL TURRET LATHE SET UP OPERATOR [address] [place] [address] [place] [address] Assigned PCP 09/18/22 documented as of this encounter
--- OUTSIDE RECORDS SUMMARY | 2025-03-24 00:36 | XMS_ITS | Encounter Summary ---
[facility] Address [address] [place] [address] Care Team Providers Care Emergency Department Director Name Role Phone Bridget Glez MD Primary Care Provider [phone] Encounter Details Date Type Department Care Team (Late st Contact Info) Description 07/15/2016 Immunization [facility] [address] [place], [place] [id number] Hilda Ramos MD [address] [place] [address] Encounter for immunization (Primary Dx) Social History Tobacco Use Types [...] as of this encounter Visit Diagnoses Diagnosis Encounter for immunization- Primary Need for other specified prophylactic vaccination against single bacterial disease documented in this encounter Care Teams Emergency Department Director Relationship Specialty [place] [address] [place], [place] [id number] PCP - General Family Practice 02/07/18 documented as of this encounter
--- OUTSIDE RECORDS SUMMARY | 2025-03-24 00:36 | XMS_ITS | Encounter Summary ---
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
--- OUTSIDE RECORDS SUMMARY | 2025-03-24 00:36 | XMS_ITS | Encounter Summary ---
Author Organization [facility] Address [address], [place] [address] Care Team Providers Care Export Administrator Name Role Phone Bridget Glez MD Primary Care Provider [phone] Encounter Details Date Type Department Care Team (Late st Contact Info) Description 12/13/2015 Correspondence [facility] Radiology [address] [place] [address] Radiology, Provider MRI SAFETY SHEET AND COMPATIBILITY FORM Social History Tobacco Use Types Packs/Day Years [...] on filedocumented in this encounter Care Teams Export Administrator Relationship Specialty [place] [address] [place] [address] PCP - General Family Practice 02/07/18 documented as of this encounter
--- NOTE | 2025-03-24 00:52 | ED.GENADULT ---
HPI - General Adult General Chief complaint: Abdominal Pain Stated complaint: Abdominal Pain Time Seen by Provider: 03/24/25 00:52 History of Present Illness HPI narrative: Patient c/o sudden onset abdominal pain while watching TV at 2100 tonight. Patient c/o nausea/vomiting - no blood. Patient denies fever but is chilled. Last BM earlier today and was normal - no diarrhea/no blood. Patient denies urinary sx. 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 Patient has h/o hysterectomy 20 years ago and h/o disc herniations/ DDD . 70-year-old woman presenting to the emergency department with concern of abdominal pain. She gestures to the mid upper abdomen. Apparently was just watching TV this evening about 3-1/2 hours prior to arrival when experience rather sudden onset of this pain. She denies nausea at this time. At a normal bowel movement about 2 hours prior to onset. Has been passing gas since and I believe since arriving to the emergency department. Dysuria or hematuria. She says for some time she has experienced the tremoring in this area of current discomfort. No known hernias. Pain is not apparently pleuritic. On review of records does have an underlying history of irritable bowel. Related Data Home Medications ?Medication ?Instructions ?Recorded ?Confirmed ibuprofen 200 mg tablet 200 mg PO .QD 03/13/25 03/13/25 Allergies Allergy/AdvReac Type Severity Reaction Status Date / Time hydroxyzine Allergy Intermediate tachycardia Verified 03/24/25 00:53 latex Allergy Mild Rash Verified 03/24/25 00:53 baclofen Allergy Rash Verified 03/13/25 14:07 chocolate Allergy Migraine Verified 03/13/25 14:07 gabapentin Allergy Rash Verified 03/13/25 14:07 Anosjsu-ROP-VoV Reductase Allergy Verified 03/13/25 14:07 Inhibitor Benzodiazepines AdvReac Intermediate Anxiety Verified 03/24/25 00:53 codeine AdvReac Mild Vomiting Verified 03/24/25 00:53 berries Allergy Severe Anaphylaxis Uncoded 03/13/25 14:07 Review of Systems Status of ROS: Reports: 6 or more systems reviewed and unremarkable except as noted in History and below [facility] Medical History (Updated 03/24/25 @ 04:13 by Derrick Guallpa MD) Abdominal adhesions ?K66.0 - Peritoneal adhesions (postprocedural) (postinfection) (ICD-10) Duodenal ulcer ?K26.9 - Duodenal ulcer, unspecified as acute or chronic, without hemorrhage or perforation (ICD-10) Migraine ?G43.909 - Migraine, unspecified, not intractable, without status migrainosus (ICD-10) IBS (irritable bowel syndrome) ?K58.9 - Irritable bowel syndrome, unspecified (ICD-10) Other specified disorders of adrenal glands ?E27.8 - Other specified disorders of adrenal gland (ICD-10) Sjogren syndrome ?M35.00 - Sjogren syndrome, unspecified (ICD-10) Depression ?F32.A - Depression, unspecified (ICD-10) Mitral valve disorder ?I05.9 - Rheumatic mitral valve disease, unspecified (ICD-10) Pulmonary nodule ?R91.1 - Solitary pulmonary nodule (ICD-10) GERD (gastroesophageal reflux disease) ?K21.9 - Gastro-esophageal reflux disease without esophagitis (ICD-10) Palpitations ?R00.2 - Palpitations (ICD-10) Anxiety ?F41.9 - Anxiety disorder, unspecified (ICD-10) Axillary fullness ?R22.30 - Localized swelling, mass and lump, unspecified upper limb (ICD-10) Family History Father Heart disease High cholesterol Colon cancer Sister High cholesterol Osteoporosis Thyroid disease Breast cancer Lymphoma Uterine cancer Maternal Grandmother Uterine cancer Social History Narrative: Semi-retired Non smoke No alcohol 2 adopted children PT for chronic back pain Walking for exercise. What is your current living situation?: I presently have a place to live Problems where you live: no known problems In the past 12 months, utilities in danger of being shut off: no In past 12 months, lack of transportation kept you from medical appts, meetings, work, or getting things needed for daily living: no In the past 12 mos, have been you worried that your food would run out before you had money to buy more?: never true In the past 12 mos, the food you bought just didn't last and you didn't have money to buy more?: never true Physical activity type: walking Smoking Status: Never smoker Do you use any of these nicotine containing products: None Second hand tobacco smoke exposure: No How often do you have a drink containing alcohol: never AUDIT-C Alcohol total score: 0 Non-prescribed substance use: denies use How often does anyone, including family, friends and others, physically hurt you: never How often does anyone, including family, friends and others, insult or talk down to you: never How often does anyone, including family, friends and others, threaten you with harm: never How often does anyone, including family, friends and others, scream or curse at you: never service: No Exam Narrative: Exam Narrative: Pleasant. Distant. Clearly uncomfortable. Here with concerned spouse. Breathing is if in pain. Abdomen is soft and quite tender in the epigastrium and into the right quadrant. Bowel sounds are present. She flinches to palpation also though elsewhere in the abdomen. Extremities are without edema. Well-perfused. Heart in elevated rate and regular rhythm. Const: Vital Signs, click to edit/add: Vital Signs - 24 hr 03/24/25 00:43 Temperature 97.1 F L Pulse Rate [Left P ulse Oximeter] 96 Respiratory Rate 20 Blood Pressure [Ri ght Upper Arm] 139/75 Pulse Oximetry 100 Oxygen Delivery Me thod Room Air Documenting provider has reviewed patient's vital signs: yes Course Vital Signs Vital signs: Initial Vital Signs Temperature 97.1 F L 03/24/25 00:43 Temperature Source Temporal Artery Scan 03/24/25 00:43 Pulse Rate 96 03/24/25 00:43 Respiratory Rate 20 03/24/25 00:43 Blood Pressure 139/75 03/24/25 00:43 Blood Pressure Mean 96 03/24/25 00:43 Blood Pressure Position Semi-Fowlers 03/24/25 00:43 Pulse Oximetry 100 03/24/25 00:43 Oxygen Delivery Method Room Air 03/24/25 00:43 Vital Signs Temperature 97.1 F L 03/24/25 00:43 Pulse Rate 96 03/24/25 00:43 Respiratory Rate 20 03/24/25 00:43 Blood Pressure 139/75 03/24/25 00:43 Pulse Oximetry 100 03/24/25 00:43 Oxygen Delivery Method Room Air 03/24/25 00:43 Temperature 97.1 F L 03/24/25 00:43 Pulse Rate 90 03/24/25 04:25 Respiratory Rate 16 03/24/25 04:25 Blood Pressure 105/59 L 03/24/25 02:02 Pulse Oximetry 97 03/24/25 04:25 Oxygen Delivery Method Room Air 03/24/25 00:43 Medications Administered Medications: Discontinued Medications Generic Name Dose Route Start Last Admin Trade Name Leticia PRN Reason Stop Dose Admin Sodium Chloride 1,000 mls @ 1,000 mls/hr 03/24/25 00:58 03/24/25 01:18 0.9 % Sodium Chloride 1000 Ml IV 03/24/25 01:57 1,000 mls/hr .Q1H ONE Administration Morphine Sulfate 4 mg 03/24/25 00:58 03/24/25 01:19 Morphine 4 Mg/Ml Inj IVP 03/24/25 00:59 4 mg ONCE ONE Administration Ondansetron HCl 4 mg 03/24/25 01:08 03/24/25 01:19 Ondansetron 2 Mg/Ml Inj IVP 03/24/25 01:09 4 mg ONCE ONE Administration Medical Decision Making MDM Narrative Medical decision making narrative: I would have concerns of potential gallbladder disease/biliary colic. Flare of functional abdominal pain? Maybe a pancreatitis. Vascular disruption less likely. Discussed pain management. She says no Toradol. Affirmed by . Unclear what side effect this may have been other than they report stomach upset and this is confirmed with IV Toradol. Had also been anticipating more immediate pain relief morphine. Will do that along normal saline. Labs to direct further imaging necessary In further review does acknowledge history of adhesions. Also since 2020 or so has been reliably waking 2-3 hours after going to sleep with epigastric and just slightly caudal pain. Over time has been worsening. Extensive evaluation has not been certain of cause. On reassessment discomfort has improved. Still present but much improved does not feel she would like any further interventions at this time. Mildly elevated white count I discussed imaging options though with normal labs some improvement in symptoms I think could be deferred. Ultrasound would be possible here this evening and so will proceed with that just to double check liver/gallbladder. I discussed findings with supervisor kennel. Unremarkable. Radiology over-read below Technique: Sonography of the abdomen was performed limited to the structures discussed below. Comparison: None Findings: The liver is normal in size and echogenicity without focal mass. No intrahepatic biliary ductal dilation. The common duct measures 1.3 millimeters which is normal Gallbladder wall thickness is normal. No sludge, calculus, pericholecystic fluid or sonographic Mae`s sign. The pancreas as visualized appears normal. The tail is obscured by bowel gas. The right kidney appears normal measuring 10.6 x 4.7 x 4.9 centimeters. The cortex measures 1.4 centimeters. Visualized aorta and cava appear normal. No ascites Portal vein is patent with appropriate direction of flow Impression: Normal examination Dictated by Cristian Guzman MD @ 03/24/2025 4:20:36 AM See patient discharge plan for further discussion I am not sure what has caused your abdominal pain. Might be related to the adhesions and some intestinal cramping? Will call you if Radiology has anything more to say about your ultrasound. I am happy you are feeling better now. Return for persistent recurrence. Medical Records Medical records reviewed: Yes I reviewed the patient's medical records Lab Data Lab results reviewed: Yes I reviewed the patient's lab results Labs: Lab Results 03/24/25 03/24/25 Range/Units 00:45 02:15 WBC 14.12 H (4.50-11.00) K/uL RBC 4.81 (4.00-5.20) m/uL Hgb 14.3 (12.0-16.0) gm/dL Hct 43.5 (33.0-51.0) % MCV 90 (80-100) fL MCH 30 (26-34) pg MCHC 33 (32-36) gm/dL RDW Coeff of [place] 13.5 (11.5-15.5) % Plt Count 282 (140-440) K/uL Neut % (Auto) 76.4 H (42.0-72.0) % Lymph % (Auto) 15.2 L (20-44) % [place] % (Auto) 5.9 (0.0-11.0) % Eos % (Auto) 1.8 (0.0-7.0) % Baso % (Auto) 0.4 (0.0-3.0) % Neut # (Auto) 10.80 H (1.7-7.0) K/uL Lymph # (Auto) 2.10 (0.90-2.90) K/uL [place] # (Auto) 0.80 (0.00-0.90) K/UL Eos # (Auto) 0.30 (0.00-0.50) K/uL Baso # (Auto) 0.10 (0.00-0.30) K/uL Abs Immat Gran (auto) 0.00 (0.00-0.30) K/uL Imm/Tot Granulo (auto) 0.3 % D-Dimer Quant (PE/DVT) 0.55 H (0.00-0.50) ug/ml Sodium 138 (135-149) mmol/L Potassium 3.6 (3.6-5.1) mmol/L Chloride 100 (96-114) mmol/L Carbon Dioxide 28 (20-32) mmol/L Anion Gap 10 (7-15) mEq/L BUN 26 (7-30) mg/dL Creatinine 0.7 (0.5-1.5) mg/dL Estimated Creat Clear 43.92 Estimated GFR 94 ml/min Glucose 126 H (60-115) mg/dL Calcium 9.6 (8.4-10.6) mg/dL Total Bilirubin 0.4 (0.1-1.5) mg/dL Direct Bilirubin 0.1 (0.0-0.5) mg/dL AST 41 H (12-35) U/L ALT 33 (4-35) U/L Alkaline Phosphatase 85 (40-150) U/L C-Reactive Protein < 0.5 L (0.5-1.0) mg/dL Total Protein 8.1 (6.0-8.3) g/dL Albumin 4.7 (3.3-5.0) g/dL Lipase 90 (23-300) U/L Urine Color Yellow (Yellow) Urine Appearance Clear (Clear) Urine pH 6.5 (5.0-8.5) Ur Specific [place] 1.015 (1.000-1.030) Urine Protein Negative (Negative) Urine Glucose (UA) Negative (Negative) Urine Ketones 1+ A (Negative) Urine Blood Negative (Negative) Urine Nitrite Negative (Negative) Urine Bilirubin Negative (Negative) Urine Urobilinogen 0.2 (0.2-1.0) Ur Leukocyte Esterase Trace A (Negative) Urine RBC 0-2 (0-2) Urine WBC 2-5 (0-5) Ur Squamous Epith Cells Few (None-Few) Urine Bacteria Few A (None) Discharge Plan Discharge Clinical Impression: Abdominal pain Patient Disposition: Home w/ Parent or Adult Condition: Improved Instructions: Abdominal Pain (ED) Additional Instructions: I am not sure what has caused your abdominal pain. Might be related to the adhesions and some intestinal cramping? Will call you if Radiology has anything more to say about your ultrasound. I am happy you are feeling better now. Return for persistent recurrence. Prescriptions: No Action ibuprofen 200 mg tablet 200 mg PO .QD Follow Up/Referrals: Harrison Hoover MD [Staff Physician, Family Practice] Stand Alone Forms: [employer] Info Instructions
[2025-03-24] MEDS: 0.9 % SODIUM CHLORIDE 1000 ml 1,000 ML IV (01:18)
[2025-03-24] MEDS: MORPHINE 4 MG/ML INJ IVP (01:19)
[2025-03-24] MEDS: ONDANSETRON 2 MG/ML inj 4 MG IVP (01:19)
[2025-03-24 01:22] LABS: Basophils Percent Auto 0.4 % (0.0-3.0); Eosinophils Percent Auto 1.8 % (0.0-7.0); Hematocrit 43.5 % (33.0-51.0); Hemoglobin* 14.3 gm/dL (12.0-16.0); Immature Granulocytes Pct Auto 0.3 %; Lymphocytes Percent Auto 15.2 % (20-44); Mean Corpuscular HGB Conc 33 gm/dL (32-36); Mean Corpuscular Hemoglobin 30 pg (26-34); Mean Corpuscular Volume 90 fL (80-100); Monocytes Percent Auto 5.9 % (0.0-11.0); Neutrophils Percent Auto 76.4 % (42.0-72.0); Platelet Count* 282 K/uL (140-440); RDW Coefficient of Variation % 13.5 % (11.5-15.5); Red Blood Count 4.81 m/uL (4.00-5.20); Slide Review Reflex No; White Blood Count* 14.12 K/uL (4.50-11.00)
[2025-03-24 01:35] LABS: Albumin* 4.7 g/dL (3.3-5.0); Chloride* 100 mmol/L (96-114); Potassium* 3.6 mmol/L (3.6-5.1); Sodium* 138 mmol/L (135-149)
[2025-03-24 01:38] LABS: Alanine Aminotransferase* 33 U/L (4-35); Alkaline Phosphatase* 85 U/L (40-150); Anion Gap 10 mEq/L (7-15); Aspartate Amino Transferase* 41 U/L (12-35); Bilirubin Direct* 0.1 mg/dL (0.0-0.5); Bilirubin Total* 0.4 mg/dL (0.1-1.5); Blood Urea Nitrogen* 26 mg/dL (7-30); Calcium* 9.6 mg/dL (8.4-10.6); Carbon Dioxide* 28 mmol/L (20-32); Creatinine* 0.7 mg/dL (0.5-1.5); Est. Creatinine Clearance* 43.92; Estimated Glomerular Filt Rate 94 ml/min; Glucose* 126 mg/dL (60-115); Lipase* 90 U/L (23-300); Total Protein* 8.1 g/dL (6.0-8.3)
[2025-03-24 01:41] LABS: C Reactive Protein* < 0.5 mg/dL (0.5-1.0)
[2025-03-24 01:54] LABS: D Dimer Quantitative* 0.55 ug/ml (0.00-0.50)
[2025-03-24 02:27] LABS: Appearance Urine Clear (Clear); Bilirubin Urine Negative (Negative); Blood Urine Negative (Negative); Color Urine Yellow (Yellow); Glucose Urine Negative (Negative); Ketones Urine 1+ (Negative); Leukocyte Esterase Urine Trace (Negative); Nitrite Urine Negative (Negative); Protein Urine Negative (Negative); Specific Gravity Urine 1.015 (1.000-1.030); Urobilinogen Urine 0.2 (0.2-1.0); pH Urine 6.5 (5.0-8.5)
[2025-03-24 02:41] LABS: Bacteria Urine Few; RBC Urine 0-2 (0-2); Squamous Epithelial Cell Urine Few (None-Few)
--- NOTE | 2025-03-24 03:15 | CRLHL7_ITS ---
For Patients: As a result of the Century Cures Act, medical imaging exams and procedure reports are released immediately into your electronic medical record. You may view this report before your referring provider. If you have questions, please contact your health care provider. Indication: Pain Technique: Sonography of the abdomen was performed limited to the structures discussed below. Comparison: None Findings: The liver is normal in size and echogenicity without focal mass. No intrahepatic biliary ductal dilation. The common duct measures 1.3 millimeters which is normal Gallbladder wall thickness is normal. No sludge, calculus, pericholecystic fluid or sonographic Mae`s sign. The pancreas as visualized appears normal. The tail is obscured by bowel gas. The right kidney appears normal measuring 10.6 x 4.7 x 4.9 centimeters. The cortex measures 1.4 centimeters. Visualized aorta and cava appear normal. No ascites Portal vein is patent with appropriate direction of flow Impression: Normal examination Dictated by Cristian Guzman MD @ 03/24/2025 4:20:36 AM (Electronically Signed)
== END 2025-03-24 04:26 | disposition home or self-care (01) ==
PROVIDERS: Emergency Provider Family Medicine; PCP Emergency Medicine
DX: R10.9 Unspecified abdominal pain (principal)
CPT/HCPCS: 36415; 76705; 80048; 80076; 81001; 83690; 85025; 85379; 86140; 87086; 96374; 96375; 99284; J2270; J2405; J7030

== ENCOUNTER 2025-04-18 10:29 | Outpatient (CLI) | payer OTHER, SELFPAY ==
--- NOTE | 2025-04-18 10:45 | CRLHL7_ITS ---
For Patients: As a result of the Cures Act, medical imaging exams and procedure reports are released immediately into your electronic medical record. You may view this report before your referring provider. If you have questions, please contact your health care provider. DIGITAL DIANGOSTIC BILATERAL MAMMOGRAM USING TOMOSYNTHESIS AND COMPUTER-AIDED DETECTION LEFT AXILLARY ULTRASOUND CLINICAL HISTORY: LEFT breast axillary lump. COMPARISON: 03/10/2023, 01/02/2019. TECHNIQUE: Digital BILATERAL mammogram in four projections with computer-aided detection. Tomosynthesis was used in this interpretation. Real-time ultrasound imaging of LEFT axilla with imaging documentation. BREAST COMPOSITION: The breasts are heterogeneously dense, which may obscure small masses. FINDINGS: 3D CC/MLO BILATERAL mammogram images submitted. Stable benign calcifications RIGHT breast. Postlumpectomy changes LEFT breast. No suspicious masses or architectural distortion. Targeted LEFT axillary ultrasound performed in the area of concern performed. Normal LEFT axillary lymph nodes are present with normal central fatty iliana, internal vascularity and thin cortex. Lymph nodes measure 15 x 3 x 6 millimeters and 17 x 5 x 8 millimeters. IMPRESSION: No suspicious findings. No evidence of malignancy. RECOMMENDATIONS: Routine screening mammography. A lay language report of this examination will be provided to the patient. BI-RADS Category 2: Benign Dictated by Derrick Newman MD @ 04/19/2025 10:44:33 AM jj/Dictated by: Derrick Newman MD @ 04/19/2025 10:44:00 AM (Electronically Signed)
--- NOTE | 2025-04-18 11:15 | CRLHL7_ITS ---
For Patients: As a result of the Cures Act, medical imaging exams and procedure reports are released immediately into your electronic medical record. You may view this report before your referring provider. If you have questions, please contact your health care provider. SEE DIGITAL DIAGNOSTIC BILATERAL MAMMOGRAM PERFORMED SAME DAY CRL:peg [email or web address]/Dictated by: Derrick Newman MD @ 04/19/2025 10:44:00 AM (Electronically Signed)
== END 2025-04-18 10:30 | disposition home or self-care (01) ==
LOC: MAMMO 10:29
PROVIDERS: PCP Emergency Medicine; Visit Provider Emergency Medicine
DX: R22.30 Localized swelling, mass and lump, unspecified upper limb (principal); R22.32 Localized swelling, mass and lump, left upper limb; N63.20 Unspecified lump in the left breast, unspecified quadrant
CPT/HCPCS: 76882; 77066; G0279

== ENCOUNTER 2025-05-31 15:23 | Outpatient (CLI) | payer OTHER, SELFPAY | END 2025-05-31 15:24 | disposition home or self-care (01) | PROVIDERS: PCP Family Medicine; Visit Provider Family Medicine | DX: E04.1 Nontoxic single thyroid nodule (principal); R10.9 Unspecified abdominal pain | CPT/HCPCS: 80076; 84443; 86140 ==

== ENCOUNTER 2025-07-12 10:37 | Outpatient (CLI) | payer OTHER, SELFPAY ==
--- NOTE | 2025-07-12 11:00 | CRLHL7_ITS ---
For Patients: As a result of the Cures Act, medical imaging exams and procedure reports are released immediately into your electronic medical record. You may view this report before your referring provider. If you have questions, please contact your health care provider. INDICATION: Epigastric pain, Concern for xiphodynia TECHNIQUE: Chest 2 views COMPARISON: None FINDINGS: Slight tortuosity of the distal descending thoracic aorta. The cardiac silhouette is upper limits of normal. Mild chronic appearing blunting of the posterior costophrenic angle noted. No fracture. Mild scarring in the right lung apex. No acute infiltrate or edema. Pectus excavatum deformity the appears to be present. No fracture. IMPRESSION: Chronic mild COPD suspected. Pectus deformity. Dictated by Derrick Newman MD @ 07/12/2025 11:14:22 AM (Electronically Signed)
== END 2025-07-12 10:38 | disposition home or self-care (01) ==
LOC: RAD 10:38
PROVIDERS: PCP Family Medicine; Visit Provider Student in an Organized Health Care Education/Training Program
DX: R10.13 Epigastric pain (principal)
CPT/HCPCS: 71046

== ENCOUNTER 2025-10-01 10:34 | Outpatient (CLI) | payer OTHER, SELFPAY | END 2025-10-01 10:35 | disposition home or self-care (01) | LOC: LKVREF 10:36 | PROVIDERS: PCP Family Medicine; Visit Provider Family Medicine | DX: Z01.818 Encounter for other preprocedural examination (principal) | CPT/HCPCS: 80048 ==